=== PATIENT | female | born 2000 ===

== ENCOUNTER 2023-12-13 12:44 | Emergency (ER) | payer OTHER ==
[~2023-12-13] VITALS: Ht 165.1 cm; Wt 76.2 kg
[2023-12-13 14:48] LABS: BASOPHILS 0.6 % (0-2); EOSINOPHILS 0.3 % (0-6); HEMATOCRIT 41.2 % (35.0-50.0); HEMOGLOBIN 13.9 g/dL (12.0-18.0); LYMPHOCYTES 34.9 % (24-44); MCH 30.9 (27-36); MCHC 33.7 g/dl (30-36); MCV 91.7 fl (81-99); NEUTROPHILS 57.2 % (39-80); PLATELET COUNT 206 K/uL (140-440); RDW 12.4 (10.5-15.0)
[2023-12-13] MEDS ORDERED: HYDROCODON-ACE1 EA10 PO (15:49)
[2023-12-13 16:03] VITALS: BP 114/73
== END 2023-12-13 16:06 | disposition home or self-care (01) ==
LOC: ED 12:44
PROVIDERS: Emergency Medicine
DX: N93.9 Abnormal uterine and vaginal bleeding, unspecified (principal)
CPT/HCPCS: 36415; 84703; 85025; 99284